=== PATIENT | female | born 1980 | race American Indian/Alaskan Native ===

== ENCOUNTER 2017-06-09 07:49 | Emergency (ER) | payer OTHER ==
[2017-06-09 07:59] VITALS: RESP 18; O2SAT 100; BMI 34.0
--- NOTE | 2017-06-09 08:10 | ED PDOC ---
Arrival/HPI - General Chief Complaint: GI Problem Time Seen by Provider: 06/09/17 08:09 Historian: Patient - History of Present Illness Narrative History of Present Illness (Text): 06/09/17 08:03 A 37 year old female with no known past medical history, presents to the emergency department with intermittent nausea and vomiting for the last few days. The patient notes that her last menstrual period was on April 28. The patient denies vaginal bleeding, discharge, pelvic pain, fevers, chills, diarrhea, chest pain, cough, shortness of breath, dizziness, or any other complaint. PMD: Dr. Meaghan De Guzman Time/Duration: Other (Past few days) Symptom Onset: Sudden Symptom Course: Intermittent Activities at Onset: Rest, Light Context: Home Past Medical History - Provider Review Nursing Documentation Reviewed: Yes - Cardiac Hx Cardiac Disorders: Yes Hx Hypertension: Yes - Pulmonary Hx Respiratory Disorders: No - Neurological Hx Neurological Disorder: No - HEENT Hx HEENT Disorder: No - Renal Hx Renal Disorder: No - Endocrine/Metabolic Hx Endocrine Disorders: No - Hematological/Oncological Hx Blood Disorders: No - Integumentary Hx Dermatological Disorder: No - Musculoskeletal/Rheumatological Hx Musculoskeletal Disorders: No - Gastrointestinal Hx Gastrointestinal Disorders: Yes Other/Comment: hx of gallstones - Genitourinary/Gynecological Hx Genitourinary Disorders: Yes Other/Comment: hx of fibroids - Psychiatric Hx Psychophysiologic Disorder: No Hx Substance Use: No - Surgical History Other/Comment: gallstones and fibroids removed, breast reduction - Anesthesia Hx Anesthesia: No Family/Social History - Physician Review Nursing Documentation Reviewed: Yes Family/Social History: No Known Family HX Smoking Status: Light Smoker < 10 Cigarettes Daily Hx Alcohol Use: No Hx Substance Use: No Allergies/Home Meds Allergies/Adverse Reactions: Allergies No Known Allergies Allergy (Verified 06/09/17 08:10) Home Medications: Home Meds Medication Instructions Recorded Confirmed Valsartan [Diovan] 80 mg PO DAILY 06/09/17 06/09/17 Physical Exam - Physical Exam Narrative Physical Exam (Text): - Review of Systems Constitutional: Normal. absent: Fatigue, Weight Change, Fevers Eyes: Normal ENT: Normal Respiratory: Normal absent: SOB, Cough, Sputum Cardiovascular: Normal absent: Chest pain, Palpitations, Syncope Gastrointestinal: (+) Nausea, Vomiting. absent: Abdominal pain, Diarrhea Genitourinary: Normal. absent: Dysuria, Frequency, Hematuria Musculoskeletal: Normal. absent: Arthralgias, Back Pain, Neck Pain Skin: Normal Neurological: Normal absent: Focal Weakness Endocrine: Normal Hemo/Lymphatic: Normal Psychiatric: Normal - Physical exam Patient appears age appropriate, speaking full sentences without difficulty - Systems Exam Head: Present: Atraumatic, Normocephalic Pupils: Present: PERRL Extraocular Muscles: Present: EOMI Conjunctiva: Present: Normal Mouth: Present: Moist Mucous Membranes Neck: Present: Normal Range of Motion. No: MIDLINE TENDERNESS, Paraspinal Tenderness Respiratory/Chest: Present: Clear to Auscultation, Good Air Exchange. No: Respiratory Distress, Accessory Muscle Use, Tachypnic Cardiovascular: Present: Regular Rate and Rhythm, Normal S1, S2, Peripheral Pulses Present. No: Murmurs Abdomen: Present: Normal Bowel Sounds, No: Tenderness, Peritoneal Signs, Rebound, Guarding Back: Present: Normal Inspection. No: Midline Tenderness, Paraspinal Tenderness Upper Extremity: Present: Normal Inspection. No: Cyanosis, Edema Lower Extremity: Present: Normal Inspection. No: Edema Neurological: Present: GCS=15, Speech Normal, cranial nerves II through XII fully intact with no cerebellar abnormality, neuro-sensory fully intact. No focal neurological deficits. Skin: Present: Warm, Dry, Normal Color. No: Rashes Lymphatic: Present: OX3, NI, NC Psychiatric: Present: Alert, Oriented x 3, Normal Insight, Normal Concentration Vital Signs Reviewed: Yes Vital Signs Temp Pulse Resp BP Pulse Ox 06/09/17 10:01 99.2 F 74 18 157/87 H 100 06/09/17 07:52 99.6 F 79 18 175/110 H 100 Temperature: Afebrile Blood Pressure: Hypertensive Pulse: Regular Respiratory Rate: Normal Appearance: Positive for: Well-Appearing Pain Distress: None Mental Status: Positive for: Alert and Oriented X 3 Medical Decision Making ED Course and Treatment: 06/09/17 08:17 Impression: A 37 year old female with intermittent nausea and vomiting. LNMP April 28. (+) urine . On exam, pt has no acute findings. Abd appears slightly distended, states that this is normal for her since she has a hx of uterine fibroids. Plan: -- Transvaginal US -- Urinalysis -- Labs -- Reassess and disposition Progress Notes: OB Pelvic Ultrasound Dictator : Mckenzie Aragon MD Report Date : 06/09/2017 09:42:32 IMPRESSION: 1. Single intrauterine gestation with mean gestational age of 5 weeks and 4 days. cardiac activity is not documented on the current examination likely related to early gestation. Follow-up imaging is recommended to confirm viability. 2. Enlarged fibroid uterus with the largest posterior wall fibroid measuring 6.7 x 8.1 x 7.5 cm. 06/09/17 09:47: Discussed with US tech, states no heart rate detected due to extensive fibroids 06/09/17 11:25 pt in no distress at this time pt informed about her elevated BP, states she has a hx of HTN and takes diovan. Pt instructed to stop taking it. Mg and K ordered for hypokalemia pt advised to start taking multivitamin pt also advised to stay in the hospital for further w/u but she refused. states she wants to be dc'd instead. States she is making f/u appt with her BATTERY INSPECTOR Dr. Beard for later this week. The patient refuses admission and wishes to leave the Emergency Department against my medical advice. Patient was told that admission to the hospital is necessary and a full explanation of the reasons why was given, and understood by patient. The risks of leaving were explained and include worsening of condition, and permanent disability and from an undiagnosed or untreated condition. The patient accepts these risks, and is in my judgment is competent and capable of understanding the clinical situation and my explanation of the risks of leaving. Patient was given the opportunity to ask questions and change mind. The patient was instructed regarding the best care for the present symptoms, and to follow up with Dr. Beard as soon as possible, or return to the Emergency Department at any time for continuing care. - Lab Interpretations Lab Results: 06/09/17 10:56 06/09/17 10:56 Lab Results 06/09/17 11:48: Magnesium 2.1 06/09/17 11:00: PT 11.6, INR 1.07, APTT 27.5 06/09/17 10:56: Blood Type A POSITIVE, Antibody Screen Negative, BBK History Checked No verified bt 06/09/17 10:56: Beta HCG, Quant 70561.00 H 06/09/17 10:56: Sodium 142, Potassium 2.9 L*, Chloride 107, Carbon Dioxide 25, Anion Gap 13, BUN 14, Creatinine 0.6, Est GFR ( Amer) > 60, Est GFR (Non- Af Amer) > 60, Random Glucose 82, Calcium 9.2, Total Bilirubin 0.4, AST 23, ALT 22, Alkaline Phosphatase 78, Total Protein 7.2, Albumin 4.1, Globulin 3.1, Albumin/Globulin Ratio 1.3 06/09/17 10:56: WBC 7.4, RBC 3.64, Hgb 10.4 L, Hct 30.6 L, MCV 84.1, MCH 28.6, MCHC 34.0, RDW 17.0 H, Plt Count 372, MPV 8.8, Gran % 66.3, Lymph % (Auto) 22.4 , [place] % (Auto) 8.2 H, Eos % (Auto) 3.0, Baso % (Auto) 0.1, Gran # 4.91, Lymph # 1.7, [place] # 0.6, Eos # 0.2, Baso # 0.01 06/09/17 08:28: Urine Color Yellow, Urine Appearance Turbid, Urine pH 6.0, Ur Specific [place] >= 1.030, Urine Protein 100 H, Urine Glucose (UA) Negative, Urine Ketones 15 H, Urine Blood Negative, Urine Nitrate Negative, Urine Bilirubin Small H, Urine Urobilinogen 1.0 H, Ur Leukocyte Esterase Negative, Urine RBC Negative, Urine WBC Negative, Ur Epithelial Cells 4 - 5, Urine Bacteria Trace, Urine Other Mucus, Urine HCG, Qual Positive I have reviewed the lab results: Yes - RAD Interpretation Radiology Orders: 06/09/17 08:12 OB TRANSVAGINAL [US] Stat - Medication Orders Current Medication Orders: Potassium Chloride (Potassium Chloride 20 Meq/100 Ml) 20 meq in 100 mls @ 50 mls/hr IVPB Q2H BEN Stop: 06/09/17 15:14 Last Admin: 06/09/17 12:20 Dose: 50 mls/hr Discontinued Medications Magnesium Sulfate 2 gm/ Sodium (Chloride) 104 mls @ 102 mls/hr IVPB ONCE ONE Stop: 06/09/17 12:16 Potassium Chloride (K-Dur 20 Meq Er Tab) 40 meq PO STAT STA Stop: 06/09/17 11:16 Last Admin: 06/09/17 12:20 Dose: 40 meq - Scribe Statement The provider has reviewed the documentation as recorded by the Coco Rivas Provider Coco Attestation: All medical record entries made by the Scribe were at my direction and personally dictated by me. I have reviewed the chart and agree that the record accurately reflects my personal performance of the history, physical exam, medical decision making, and the department course for this patient. I have also personally directed, reviewed, and agree with the discharge instructions and disposition. Disposition/Present on Arrival - Present on Arrival Any Indicators Present on Arrival: No History of DVT/PE: No History of Uncontrolled Diabetes: No Urinary Catheter: No History of Decub. Ulcer: No History Surgical Site Infection Following: None - Disposition Have Diagnosis and Disposition been Completed?: Yes Diagnosis: Hypokalemia Disposition: AGAINST MEDICAL ADVICE Disposition Time: 11:33 Patient Plan: Discharge Patient Problems: Current Active Problems Problem Status Onset Hypokalemia Acute Condition: GUARDED Discharge Instructions (ExitCare): Hypokalemia (ED), Hypertension (ED), Abdominal Pain in (ED) Additional Instructions: PLEASE RETURN TO THE EMERGENCY DEPARTMENT FOR NEW OR WORSENING SYMPTOMS. RETURN RIGHT AWAY IF YOU CANNOT FOLLOW UP WITH YOUR PRIMARY CARE DOCTOR, CLINIC, OR SPECIALIST IN 1-2 DAYS. Prescriptions: Doxylamine/Pyridoxine HCl (B6) [Jannie Thomas 10-10 mg Tablet] 2 each PO DAILY PRN #24 tablet.dr BOLIVAR Reason: Nausea/Vomiting Multivitamin [Multivitamins] 1 each PO DAILY #14 capsule Referrals: Gege Harding MD [Primary Care Provider] - Follow up with primary Evan Feldman MD [Medical Doctor] - Follow up with primary Forms: [facility] (Malay), WORK NOTE
[2017-06-09 08:40] LABS: URINE BILIRUBIN SMALL (NEGATIVE); URINE BLOOD NEGATIVE (NEGATIVE); URINE GLUCOSE (UA) NEGATIVE (NEGATIVE); URINE KETONE 15 mg/dL (NEGATIVE); URINE LEUKOCYTE ESTERASE NEGATIVE Leu/uL (NEGATIVE); URINE PROTEIN 100 mg/dL (<30 mg/dL)
[2017-06-09 08:41] LABS: URINE APPEARANCE TURBID (CLEAR); URINE COLOR YELLOW (YELLOW)
[2017-06-09 08:51] LABS: URINE BACTERIA TRACE (NEG); URINE RBC NEGATIVE /hpf (0-2); URINE WBC NEGATIVE /hpf (0-6)
--- NOTE | 2017-06-09 09:43 | US ---
PROCEDURE: OB Pelvic Ultrasound HISTORY: , abd pain COMPARISON: None available. FINDINGS: UTERUS: Gestational sac: Single intrauterine gestation. Heart rate: Cardiac activity is not documented on the current examination. age (Ultrasound estimated): 5 weeks and 4 days Sparkle-gestational hemorrhage: None. Date of delivery (Ultrasound estimated) : 02/05/2018 Uterus measures 18.5 X 13.5 X 16.3 cm. Anteverted and enlarged. There is a 5.3 x 5.0 x 5.6 cm anterior wall fibroid, a 6.7 x 8.1 x 7.5 cm posterior wall fibroid and 4.6 x 4.5 x 5.1 cm fundal fibroid. CERVIX: Long and closed. No cervical abnormality seen. RIGHT OVARY: Measures cm. No mass lesion. Normal flow. LEFT OVARY: Measures 5.2 x 3.6 x 4.8 cm. No solid mass. Normal flow. There is a 3.1 x 2.7 x 2.7 cm simple/corpus luteum cyst. FREE FLUID: None. OTHER FINDINGS: None. IMPRESSION: 1. Single intrauterine gestation with mean gestational age of 5 weeks and 4 days. cardiac activity is not documented on the current examination likely related to early gestation. Follow-up imaging is recommended to confirm viability. 2. Enlarged fibroid uterus with the largest posterior wall fibroid measuring 6.7 x 8.1 x 7.5 cm.
[2017-06-09 10:02] VITALS: TEMP 99.2
[2017-06-09 11:09] LABS: BASO # 0.01 K/mm3 (0.0-2.0); BASO % 0.1 % (0.0-3.0); EOS # 0.2 (0.0-0.7); GRAN # 4.91 (1.4-6.5); GRAN % 66.3 % (50.0-68.0); HEMATOCRIT 30.6 % (36.0-48.0); LYMPH # 1.7 (1.2-3.4); LYMPH % 22.4 % (22.0-35.0); MEAN CELL VOLUME 84.1 fl (80.0-105.0); MEAN CORPUSCULAR HEMOGLOBIN 28.6 pg (25.0-35.0); MEAN PLATELET VOLUME 8.8 fl (7.0-11.0); MONO # 0.6 (0.1-0.6); MONO % 8.2 % (1.0-6.0); WHITE BLOOD COUNT 7.4 10^3/ul (4.5-11.0)
[2017-06-09 11:12] LABS: ALB/GLOB RATIO 1.3 (1.1-1.8); ALKALINE PHOSPHATASE 78 U/L (38-133); ALT/SGPT 22 U/L (7-56); AST/SGOT 23 U/L (15-39); BILIRUBIN,TOTAL 0.4 mg/dL (0.2-1.3); BLOOD UREA NITROGEN 14 mg/dL (7-21); CALCIUM 9.2 mg/dL (8.4-10.5); CARBON DIOXIDE 25 mmol/L (21-33); CHLORIDE 107 mmol/L (98-107); GFR AFRICAN-AMERICAN > 60; GLUCOSE,RANDOM 82 mg/dL (70-110); SODIUM 142 mmol/L (132-148); TOTAL PROTEIN 7.2 g/dL (5.8-8.3)
[2017-06-09 11:12] LABS: INR 1.07 (0.93-1.08); PARTIAL THROMBOPLASTIN TIME 27.5 Seconds (23.7-30.8)
[2017-06-09 11:14] LABS: POTASSIUM 2.9 mmol/L (3.6-5.0)
[2017-06-09] MEDS ORDERED: Potassium Chloride 20 mEq ER Tab PO STA (11:15)
[2017-06-09] MEDS ORDERED: Magnesium Sulfate 2 GM in Sodium Chloride 0.9% 100 ML IVPB ONE (11:15)
[2017-06-09 16:08] VITALS: BP 157/95; PULSE 70
== END 2017-06-09 16:52 | disposition left against medical advice (07) ==
LOC: MERGE 07:49 → ED 07:49
DX: O26.891 Other specified pregnancy related conditions, first trimester (principal); Z3A.01 Less than 8 weeks gestation of pregnancy; E87.6 Hypokalemia
CPT/HCPCS: 76817; 80053; 81001; 83735; 84702; 84703; 85025; 85610; 85730; 86850; 86900; 87086; 96360; 96361; 99285; J3480

== ENCOUNTER 2017-06-11 00:01 | Emergency (ER) | payer OTHER ==
[2017-06-11 00:02] VITALS: BMI 34.0
[2017-06-11 00:30] VITALS: TEMP 99.1
[2017-06-11] MEDS ORDERED: Sodium Chloride 0.9% 1,000 ML IV STA (00:52)
[2017-06-11 01:07] LABS: BASO # 0.03 K/mm3 (0.0-2.0); BASO % 0.3 % (0.0-3.0); EOS # 0.1 (0.0-0.7); GRAN # 8.42 (1.4-6.5); GRAN % 79.5 % (50.0-68.0); HEMATOCRIT 33.4 % (36.0-48.0); LYMPH # 1.4 (1.2-3.4); LYMPH % 12.9 % (22.0-35.0); MEAN CELL VOLUME 84.6 fl (80.0-105.0); MEAN CORPUSCULAR HEMOGLOBIN 28.4 pg (25.0-35.0); MEAN CORPUSCULAR HGB CONC 33.5 g/dl (31.0-37.0); MEAN PLATELET VOLUME 8.8 fl (7.0-11.0); MONO # 0.7 (0.1-0.6); MONO % 6.3 % (1.0-6.0); RED CELL DISTRIBUTION WIDTH 16.9 % (11.5-14.5); WHITE BLOOD COUNT 10.6 10^3/ul (4.5-11.0)
[2017-06-11 01:10] LABS: URINE BILIRUBIN MODERATE (NEGATIVE); URINE BLOOD LARGE (NEGATIVE); URINE GLUCOSE (UA) NEGATIVE (NEGATIVE); URINE KETONE >=80 mg/dL (NEGATIVE); URINE LEUKOCYTE ESTERASE NEGATIVE Leu/uL (NEGATIVE); URINE PROTEIN >=300 mg/dL (<30 mg/dL)
[2017-06-11 01:12] LABS: ALB/GLOB RATIO 1.2 (1.1-1.8); ALKALINE PHOSPHATASE 89 U/L (38-133); BILIRUBIN,TOTAL 0.8 mg/dL (0.2-1.3); BLOOD UREA NITROGEN 12 mg/dL (7-21); CALCIUM 9.6 mg/dL (8.4-10.5); CARBON DIOXIDE 19 mmol/L (21-33); CHLORIDE 105 mmol/L (95-110); GFR AFRICAN-AMERICAN > 60; GLUCOSE,RANDOM 86 mg/dL (70-110); POTASSIUM 3.3 mmol/L (3.6-5.0); SODIUM 140 mmol/L (132-148)
[2017-06-11 01:15] LABS: URINE APPEARANCE SL CLOUDY (CLEAR); URINE COLOR YELLOW (YELLOW)
[2017-06-11 01:24] LABS: AST/SGOT 35 U/L (15-39)
[2017-06-11 01:25] LABS: ALT/SGPT 15 U/L (7-56)
--- NOTE | 2017-06-11 01:32 | ED PDOC ---
Arrival/HPI <Marshall Duran - Last Filed: 06/11/17 02:20> - General Historian: Patient - History of Present Illness Symptom Onset: Gradual Symptom Course: Unchanged Activities at Onset: Rest, Light Context: Home <Tori Jorgensen - Last Filed: 06/11/17 02:41> - General Chief Complaint: Female Genitourinary Time Seen by Provider: 06/11/17 00:36 - History of Present Illness Narrative History of Present Illness (Text): 06/11/17 00:35 37 year old female, currently 5 weeks , who presents to the Emergency department complaining of vaginal bleeding which started earlier this evening. Patient also complaining of lower abdominal cramping and vomiting. Patient states she has a history of hypertension and stopped taking her blood pressure medication after finding out she was . Patient states she was seen in the ER a few days prior and had an ultrasound performed which showed large fibroids. Patient denies any fever, chills, chest pain, shortness of breath, diarrhea, back pain, headache, dizziness, or any other complaints. (Tori Jorgensen) Past Medical History - Provider Review Nursing Documentation Reviewed: Yes - Cardiac Hx Cardiac Disorders: Yes Hx Hypertension: Yes - Pulmonary Hx Respiratory Disorders: No - Neurological Hx Neurological Disorder: No - HEENT Hx HEENT Disorder: No - Renal Hx Renal Disorder: No - Endocrine/Metabolic Hx Endocrine Disorders: No - Hematological/Oncological Hx Blood Disorders: No - Integumentary Hx Dermatological Disorder: No - Musculoskeletal/Rheumatological Hx Musculoskeletal Disorders: No - Gastrointestinal Hx Gastrointestinal Disorders: Yes Other/Comment: hx of gallstones - Genitourinary/Gynecological Hx Genitourinary Disorders: Yes Other/Comment: hx of fibroids - Psychiatric Hx Psychophysiologic Disorder: No Hx Substance Use: No - Surgical History Other/Comment: gallstones and fibroids removed, breast reduction - Anesthesia Hx Anesthesia: No <Tori Jorgensen - Last Filed: 06/11/17 02:41> Family/Social History - Physician Review Nursing Documentation Reviewed: Yes Family/Social History: Unknown Family HX Smoking Status: Light Smoker < 10 Cigarettes Daily Hx Alcohol Use: No Hx Substance Use: No <Tori Jorgensen - Last Filed: 06/11/17 02:41> Allergies/Home Meds <Marshall Duran - Last Filed: 06/11/17 02:20> <Tori Jorgensen Jessica - Last Filed: 06/11/17 02:41> Allergies/Adverse Reactions: Allergies No Known Allergies Allergy (Verified 06/09/17 08:10) Review of Systems - Physician Review All systems were reviewed & negative as marked: Yes - Review of Systems Constitutional: Normal. absent: Fevers Eyes: Normal ENT: Normal Respiratory: Normal. absent: SOB, Cough Cardiovascular: Normal. absent: Chest Pain Gastrointestinal: Abdominal Pain, Vomiting Genitourinary Female: Vaginal Bleeding. absent: Dysuria, Frequency, Hematuria, Urine Output Changes Musculoskeletal: Normal. absent: Back Pain, Neck Pain Skin: Normal Neurological: Normal Endocrine: Normal Hemo/Lymphatic: Normal Psychiatric: Normal <ShaunclayTori T - Last Filed: 06/11/17 02:41> Physical Exam Vital Signs Reviewed: Yes Temperature: Afebrile Blood Pressure: Hypertensive Pulse: Regular Respiratory Rate: Normal Appearance: Positive for: Well-Appearing, Non-Toxic, Comfortable Pain Distress: None Mental Status: Positive for: Alert and Oriented X 3 - Systems Exam Head: Present: Atraumatic, Normocephalic Pupils: Present: PERRL Extroacular Muscles: Present: EOMI Conjunctiva: Present: Normal Mouth: Present: Moist Mucous Membranes Neck: Present: Normal Range of Motion Respiratory/Chest: Present: Clear to Auscultation, Good Air Exchange. No: Respiratory Distress, Accessory Muscle Use Cardiovascular: Present: Regular Rate and Rhythm, Normal S1, S2. No: Murmurs Abdomen: Present: Tenderness (Suprapubic tenderness), Normal Bowel Sounds. No: Distention, Peritoneal Signs Genitourinary/Pelvic Exam: Present: Normal External Genitalia, Vaginal Bleeding , Cervical os Closed, Other (chaparoned by jazz ponce RN). No: Vaginal Discharge, Vaginal Lesions, Adenexal Tenderness, Adenexal Mass, Cervical Motion Tendernes, Odor Back: Present: Normal Inspection Upper Extremity: Present: Normal Inspection. No: Cyanosis, Edema Lower Extremity: Present: Normal Inspection. No: Edema Neurological: Present: GCS=15, Speech Normal Skin: Present: Warm, Dry, Normal Color. No: Rashes Psychiatric: Present: Alert, Oriented x 3 <Torres Jorgensenkrystian Lopez - Last Filed: 06/11/17 02:41> Vital Signs Temp Pulse Resp BP Pulse Ox 06/11/17 02:14 90 17 168/106 H 98 06/11/17 01:52 117 H 18 168/106 H 100 06/11/17 00:30 99.1 F 97 H 16 175/111 H 100 Medical Decision Making <Marshall Duran - Last Filed: 06/11/17 02:20> <Tori Jorgensen - Last Filed: 06/11/17 02:41> ED Course and Treatment: 06/11/17 00:49 Patient is nontoxic well appearing in no distress. pt hypertensive. no distress. CBC: wnl CMP: k; 3.3 Beta hC TYPE AND SCREEN: A+ Urinalysis: no leukocytes Ultrasound:FINDINGS: Gestation: Single intrauterine gestational sac is identified measuring 13 mm, corresponding to an approximate gestational age of 5 weeks and 4 days. No pole or cardiac motion is detected. Placenta/amniotic fluid: Cannot be adequately evaluated due to the early gestational age. Uterus/cervix: Multiple fibroids are again identified within the uterus. Within the anterior fundus measuring 5.3 x 5.0 x 5.6 cm. Within the posterior fundus measuring 6.7 x 8.1 x 7.7 cm in and partially exophytic within the fundus measuring 4.6 x 6.5 x 5.1 cm. The cervix measures 2.9 cm, and is closed. The uterus is enlarged measuring 18.5-13.5 x 16.3 cm Ovaries: A simple cyst is again identified within the left ovary measuring 3.1 cm in greatest dimension. Despite prolonged interrogation, the right ovary was not visualized. Free fluid: No free fluid. IMPRESSION: Single intrauterine gestational sac with an approximate gestational age of 5 weeks and 4 days. No pole is present. Please correlate this finding with the serum beta hCG with short term followup is needed. Fibroid uterus. (Likely) corpus luteal cyst within the left ovary, as detailed above. case was discussed with dr. fox; FARM SPECIALIST oracle distribution consultant. Discussed my concern for elevated blood pressure and the lack of methyldopa in hospital. He suggested labetalol as 2nd line medication to give. i discussed vomiting in and he suggested given reglan for vomiting. pt vomiting in er; I have discussed medications that are safe in but not available in er to give in er. I have advised the patient that i can give the patient reglan for nausea which is not 100% safe in and does cause risk to the fetus. Pt states that she wants the medication and understands the risk of taking the medication. pt with elevated blood pressure; will d/c home with rx for methyldopa enough until visit with FARM SPECIALIST. pt has appointment with FARM SPECIALIST on friday. 20mg potassium given PO. Discussed all the results the patient. advised f/u with the wheel and caster repairer within the next 2 days. advised immediate return if symptoms worsen,persist or if new symptoms develop. I discussed taking a blood pressure medication twice a day. I have advised taking Diclegis two tablets at bedtime for nausea/vomiting. Patient verbalizes understanding of discharge instructions and need for immediate followup. all aspects of this case were discussed the attending of record. Impression: threatened , fibroids, nausea/vomiting in Tylenol every 4 hours as needed for pain Diclegis; take 2 tablets daily at bedtime. Methyldopa; 1 tablet twice daily Increase fluids Followup with the container coordinator within the next 2 days Return immediately if symptoms worsen persist or if new symptoms develop: High fevers, heavy bleeding, severe abdominal pain, vomiting, diarrhea, dizziness or weakness or any other concerning symptoms develop. (Tori Jorgensen) - Lab Interpretations Lab Results: 06/11/17 00:49 06/11/17 00:49 Lab Results 06/11/17 00:49: WBC 10.6 D, RBC 3.95, Hgb 11.2 L, Hct 33.4 L, MCV 84.6, MCH 28.4, MCHC 33.5, RDW 16.9 H, Plt Count 397, MPV 8.8, Gran % 79.5 H, Lymph % ( Auto) 12.9 L, [place] % (Auto) 6.3 H, Eos % (Auto) 1.0 L, Baso % (Auto) 0.3, Gran # 8.42 H, Lymph # 1.4, [place] # 0.7 H, Eos # 0.1, Baso # 0.03 06/11/17 00:49: Beta HCG, Quant 61976.00 H 06/11/17 00:49: Sodium 140, Potassium 3.3 L, Chloride 105, Carbon Dioxide 19 L, Anion Gap 19, BUN 12, Creatinine 0.6, Est GFR ( Amer) > 60, Est GFR (Non- Af Amer) > 60, Random Glucose 86, Calcium 9.6, Total Bilirubin 0.8, AST 35, ALT 15, Alkaline Phosphatase 89, Total Protein 8.0, Albumin 4.3, Globulin 3.6, Albumin/Globulin Ratio 1.2 06/11/17 00:49: Urine Color Yellow, Urine Appearance Sl cloudy, Urine pH 6.0, Ur Specific [place] >= 1.030, Urine Protein >=300 H, Urine Glucose (UA) Negative , Urine Ketones >=80, Urine Blood Large H, Urine Nitrate Negative, Urine Bilirubin Moderate H, Urine Urobilinogen 4.0 H, Ur Leukocyte Esterase Negative, Urine RBC 1 - 3, Urine WBC 2 - 5, Ur Epithelial Cells 3 - 4, Urine Bacteria Mod , Hyaline Casts 0 - 2 - RAD Interpretation Radiology Orders: 06/11/17 00:37 OB TRANSVAGINAL [US] Stat - Medication Orders Current Medication Orders: Discontinued Medications Metoclopramide HCl (Reglan) 10 mg PO STAT STA Stop: 06/11/17 02:10 Potassium Chloride (K-Dur 20 Meq Er Tab) 20 meq PO STAT STA Stop: 06/11/17 02:16 - PA / CULTURE MEDIA LABORATORY ASSISTANT / Resident Statement MD/ has reviewed & agrees with the documentation as recorded. / has examined the patient and agrees with the treatment plan. <Marshall Duran - Last Filed: 06/11/17 02:20> - Scribe Statement The provider has reviewed the documentation as recorded by the Scribe <Tori Jorgensen - Last Filed: 06/11/17 02:41> - Scribe Statement Mikki Cheng Provider Scribe Attestation: All medical record entries made by the Scribe were at my direction and personally dictated by me. I have reviewed the chart and agree that the record accurately reflects my personal performance of the history, physical exam, medical decision making, and the department course for this patient. I have also personally directed, reviewed, and agree with the discharge instructions and disposition. (Tori Jorgensen) Disposition/Present on Arrival <Marshall Duran - Last Filed: 06/11/17 02:20> - Present on Arrival Any Indicators Present on Arrival: No History of DVT/PE: No History of Uncontrolled Diabetes: No Urinary Catheter: No History of Decub. Ulcer: No History Surgical Site Infection Following: None - Disposition Have Diagnosis and Disposition been Completed?: Yes Disposition Time: 02:36 Patient Plan: Discharge <Tori Jorgensen - Last Filed: 06/11/17 02:41> - Disposition Diagnosis: Threatened , Nausea/vomiting in , Fibroid uterus Disposition: HOME/ ROUTINE Patient Problems: Current Active Problems Problem Status Onset Nausea/vomiting in Acute Threatened Acute Condition: GOOD Discharge Instructions (ExitCare): Threatened Miscarriage (ED) Additional Instructions: Tylenol every 4 hours as needed for pain Diclegis; take 2 tablets daily at bedtime. Methyldopa; 1 tablet twice daily Increase fluids Followup with the container coordinator within the next 2 days Return immediately if symptoms worsen persist or if new symptoms develop: High fevers, heavy bleeding, severe abdominal pain, vomiting, diarrhea, dizziness or weakness or any other concerning symptoms develop. Prescriptions: Doxylamine/Pyridoxine HCl (B6) [Edgardos Dr 10-10 mg Tablet] 2 tab PO HS #8 tab Methyldopa [Aldomet] 250 mg PO BID #6 tab Referrals: Bartolome Fox MD [Staff Provider] - Follow up with primary Evan Feldman MD [Medical Doctor] - Follow up with primary Forms: [email or web address] (Yemeni), WORK NOTE
[2017-06-11 01:36] LABS: URINE BACTERIA MOD (NEG)
--- NOTE | 2017-06-11 01:47 | US ---
EXAM: US , Transvaginal CLINICAL HISTORY: 37 years old, female; Signs and symptoms; Lmp or gestational age (in weeks): 04/23/17; Other: Pain/bleeding; TECHNIQUE: Real-time transvaginal obstetrical ultrasound of the maternal pelvis and a first trimester with image documentation. Transvaginal imaging was used for better evaluation of the fetus and adnexa. COMPARISON: US - OB TRANSVAGINAL 06/09/2017 8:21:32 AM FINDINGS: Gestation: Single intrauterine gestational sac is identified measuring 13 mm, corresponding to an approximate gestational age of 5 weeks and 4 days. No pole or cardiac motion is detected. Placenta/amniotic fluid: Cannot be adequately evaluated due to the early gestational age. Uterus/cervix: Multiple fibroids are again identified within the uterus. Within the anterior fundus measuring 5.3 x 5.0 x 5.6 cm. Within the posterior fundus measuring 6.7 x 8.1 x 7.7 cm in and partially exophytic within the fundus measuring 4.6 x 6.5 x 5.1 cm. The cervix measures 2.9 cm, and is closed. The uterus is enlarged measuring 18.5-13.5 x 16.3 cm Ovaries: A simple cyst is again identified within the left ovary measuring 3.1 cm in greatest dimension. Despite prolonged interrogation, the right ovary was not visualized. Free fluid: No free fluid. IMPRESSION: Single intrauterine gestational sac with an approximate gestational age of 5 weeks and 4 days. No pole is present. Please correlate this finding with the serum beta hCG with short term followup is needed. Fibroid uterus. (Likely) corpus luteal cyst within the left ovary, as detailed above.
[2017-06-11 01:52] VITALS: BP 168/106
[2017-06-11 02:15] VITALS: PULSE 90; O2SAT 98
[2017-06-11] MEDS ORDERED: Potassium Chloride 20 mEq ER Tab PO STA (02:15)
[2017-06-11 03:19] VITALS: RESP 18
== END 2017-06-11 06:00 | disposition home or self-care (01) ==
LOC: ED 00:01
DX: O21.9 Vomiting of pregnancy, unspecified (principal); O20.0 Threatened abortion; O34.11 Maternal care for benign tumor of corpus uteri, first trimester; D25.9 Leiomyoma of uterus, unspecified; Z3A.01 Less than 8 weeks gestation of pregnancy